=== PATIENT | male | born 1995 | race Caucasian/White ===

== ENCOUNTER 2018-05-31 18:41 | Emergency (ER) | payer MEDICAID ==
[~2018-05-31] VITALS: Ht 180.3 cm; Wt 71.2 kg
[2018-05-31 19:12] VITALS: Ht 180.3 cm; Wt 71.2 kg
[2018-05-31 21:00] VITALS: BP 130/80
[2018-05-31 21:21] LABS: UA SPECIFIC GRAVITY 1.015 (1.005-1.035); microscopic required? YES; urine erythrocyte 1+ (NEGATIVE)
== END 2018-05-31 21:00 | disposition home or self-care (01) ==
LOC: ED 18:41
PROVIDERS: Specialist
DX: N39.0 Urinary tract infection, site not specified (principal)
CPT/HCPCS: 87491; 87591; J0696